=== PATIENT | male | born 1950 | race Caucasian/White ===

== ENCOUNTER → 2016-11-04 | Outpatient (CLI) | payer MEDICARE, BC ==
[~2016-11-04] MED LIST: LIPITOR PO; MULTIPLE VITAMI1 T11 PO; PLAVIX PO; TESTOPEL; TESTOSTERONE; VITAMINS; XARELTO20 MG PO
--- NOTE | ~2016-11-04 | MR113 ---
[facility] A Service of [facility] & [facility] RADIOLOGY TEXT RESULTS PATIENT: JEREMY LI LOCATION: [facility] : 52 UNIT #: [id number] AGE: [address]: Von Wilks MD SEX: M ORDER DR: [id number] [address] [address] [id number] O MR#: [id number] Acc #: [id number] NAME: JEREMY LI. : 1950 SEX: M STUDY DATE/TIME: 11/04/2016 11:57 UNIT: [facility] ROOM: STUDY DESCRIPTION: MR Lumbar Wo Contrast Attending Physician: Von Wilks M.D. Referring Physician: Von Wilks M.D. Ordering Physician: Von Wilks M.D. Primary Care Physician: Von Wilks M.D. MRI CENTER REPORT This report is preliminary unless electronic signature is present. EXAM MRI of the lumbar spine without contrast dated 11/04/2016. COMPARISON Plain films lumbar spine dated 10/30/2016. HISTORY Increasing low back pain, right hip pain which extends into the right lower extremity. It is worse in the last 10 days. TECHNIQUE Multisequence multiplanar imaging of the lumbar spine was obtained without contrast. FINDINGS Vertebral body heights are preserved. There is mild anterolisthesis of L5 with respect to L4 and S1. Edematous endplate changes are at L4-L5, L1-L2 and to a lesser degree at L2-L3. There is fatty signal 1.5 cm lesion with some edema in T12 vertebral body. Lumbar dextroscoliosis is seen with apex at L1-L2. Mcallister angle measured from the inferior endplate of T11 to the superior endplate of L4 is 30 degrees. L1-L2: Disc osteophyte complex which is asymmetrically prominent in the left foraminal to extra-foraminal region. Fyos-ow-lhoprnss left facet hypertrophic change is noted with spurs seen along its anteromedial aspect contributing to jpfs-ie-tefowsju left lateral recess stenosis. There is moderate left neural foraminal narrowing and mild canal stenosis. Small central protrusion is also probably present. L2-L3: Disc osteophyte complex which is asymmetrically prominent in bilateral foraminal to extra-foraminal regions. Mild right and upkl-mb-tnixzelt left facet hypertrophic changes are noted with mild left STS. [facility] A Service of [facility] & [facility] RADIOLOGY TEXT RESULTS PATIENT: JEREMY LI LOCATION: [facility] : 52 UNIT #: [id number] AGE: [address]: Von Wilks MD SEX: M ORDER DR: lateral recess stenosis and borderline size to mild canal stenosis. Moderate bilateral neural foraminal narrowing is seen. L3-L4: Disc osteophyte complex with mild bilateral facet changes, particularly in the right. Ixgstpky-nx-fbgrjn canal stenosis is seen with bvbisnss-fh-jbbkkv right and moderate left neural foraminal narrowing. Ytdq-xb-rxzoxvku right and mild left lateral recess stenosis are present. L4-L5: Disc osteophyte complex with moep-ei-gawspfnk right facet hypertrophic changes, severe right and nvmqhklj-ou-amtvbw left neural foraminal narrowing are noted. There is borderline size to mild canal stenosis and mild right lateral recess stenosis. L5-S1: Concentric disc bulge with mild bilateral facet changes. No canal stenosis or neural foraminal narrowing. IMPRESSION 1. Lumbar dextroscoliosis is seen with apex at L1-L2. 2. Disc osteophyte complex and facet changes are at multiple levels, as described above, relatively worse at L3-L4. 3. Edematous endplate changes are at multiple levels of the lumbar spine, relatively worse at L1-L2 and L4-L5. 4. There is fatty signal 1.5 cm lesion with some edema in T12 vertebral body. It is probably a nonaggressive lesion, like atypical hemangioma, based on statistics. Dictated by... Steve Ventura M.D. THIS IS AN ELECTRONICALLY VERIFIED REPORT Steve Ventura M.D. at 11/06/2016 3:24 PM CPR/pcl TD: 11/05/2016 17:49 JOB #: [id number] MRI CENTER REPORT Page 1 of 1
== END | disposition home or self-care (01) ==
LOC: SMRI 11:22
DX: M41.9 Scoliosis, unspecified (principal); M25.78 Osteophyte, vertebrae; R60.0 Localized edema
CPT/HCPCS: 72148